=== PATIENT | male | born 1960 | race Caucasian/White ===

== ENCOUNTER 2019-12-01 01:16 | Inpatient (IN) | payer BC, OTHER ==
[2019-12-01] MEDS ORDERED: Succinylcholine Chloride 20 MG/ML 10 ml SYRINGE FS ONE (01:22)
[2019-12-01] MEDS ORDERED: diphenhydrAMINE 50 MG/ML VIAL ONE (01:30)
[2019-12-01] MEDS ORDERED: methylPREDNISolone Sod Succ/PF 125 MG/2 ML VIAL ONE (01:30)
[2019-12-01] MEDS ORDERED: Famotidine/PF 20 mg/2ml Vial ONE ×2 (01:30→01:35)
[2019-12-01 01:40] LABS: #Basophils 0.1 thou/uL (0.0-0.2); #Eosinphils 0.3 thou/uL (0.0-0.7); #Lymphocytes 2.3 thou/uL (1.20-3.40); #Monocytes 0.9 thou/uL (0.11-0.59); #Neutrophils 3.7 thou/uL (1.40-6.50); %Basophils 1.3 % (0.0-1.0); %Eosinophils 4.4 % (0.0-10.0); %Lymphocytes 31.8 % (21.0-51.0); %Monocytes 12.1 % (0.0-10.0); %Neutrophils 50.5 % (42.0-75.0); Mean Corpuscular HGB CONC 33.7 g/dL (32.0-36.0); Mean Corpuscular Hemoglobin 34.1 pg (27.0-31.0); Platelet Count 209 thou/uL (130-400); RBC Distribution Width 11.8 % (11.5-14.5); Red Blood Cell (RBC) Count 4.99 mill/uL (4.70-6.10); White Blood Cell (WBC) Count 7.3 thou/uL (4.8-10.8)
[2019-12-01] MEDS ORDERED: Fentanyl 100 MCG/2 ML VIAL ONE (01:52)
[2019-12-01] MEDS ORDERED: Midazolam HCl 2 mg/2 ml Vial ONE ×2 (01:52)
[2019-12-01] MEDS ORDERED: Lidocaine 1% w/Epinephrine 1:100K 20 ML VIAL ONE (01:55)
[2019-12-01 01:58] LABS: ALT (SGPT) 173 U/L (8-55); AST (SGOT) 181 U/L (5-34); Albumin 4.8 g/dL (3.5-5.0); Alkaline Phosphatase 78 U/L (40-110); Anion Gap 18 mmol/L (10-20); BUN (Urea Nitrogen) 11 mg/dL (8.4-25.7); Bilirubin, Total 0.6 mg/dL (0.2-1.2); Calc. Creatinine Clearance 0 mL/min (70-130); Calcium 9.8 mg/dL (7.8-10.44); Carbon Dioxide 23 mmol/L (22-29); Chloride 99 mmol/L (98-107); Estimated GFR-MDRD 78; Globulin 3.7 g/dL (2.4-3.5); Glucose 97 mg/dL (70-105); Potassium 3.8 mmol/L (3.5-5.1); Protein, Total 8.5 g/dL (6.0-8.3); Sodium 136 mmol/L (136-145)
[2019-12-01] MEDS: Propofol 1,000 MG/100 ML VIAL IV PRN ×3 (03:00→18:12)
[2019-12-01] MEDS ORDERED: Morphine 2 MG/ML VIAL SLOW IVP PRN (03:03)
[2019-12-01] MEDS ORDERED: Fentanyl BOLUS 250 ML IVPB PRN (03:03)
[2019-12-01] MEDS ORDERED: Propofol BOLUS 1,000 MG/100 ML VIAL IV PRN (03:03)
[2019-12-01] MEDS ORDERED: DISCONTINUE PREVIOUS NARCOTIC PAIN MEDICATIONS AND BENZODIAZEPINES FS SCH (03:03)
[2019-12-01 03:24] LABS: Actual Bicarbonate (HCO3a) 17.1 mEq/L (22-28); Base Excess (BEa) -8.9 mEq/L (-2.0 to +3.0); CO2 Tension 37.5 mmHg (35.0-45.0); Calcium, Ionized (arterial) 1.08 mmol/L (1.12-1.30); Carboxyhemoglobin (COHb) 2.9 gm% (0.0-3.0); Hemoglobin (Hb) 15.2 g/dL (14.0-18.0); O2 Tension (PaO2), arterial 156.1 mmHg (80.0-100.0); Potassium - ABG Lab 3.36 mmol/L (3.70-5.30); pH, Arterial 7.28 (7.35-7.45)
[2019-12-01 03:25] LABS: ALV-art Gradient 153.525 (0-20); Puncture Site LRA
[2019-12-01] MEDS: fentaNYL Citrate/PF 2,000 MCG in Sodium Chloride 0.9% 60 ML IV SCH (03:33)
[2019-12-01] MEDS ORDERED: diphenhydrAMINE 50 MG/ML VIAL IVP PRN (03:39)
--- NOTE | 2019-12-01 03:42 | PDOC.HHP ---
Hospitalist HPI - History of Present Illness angioedema History of Present Illness: This is a 59 year old male with past medical history of hypertension who presented with tongue swelling. THe patient was started on lisinopril-HCTZ three days ago per chart review. Per ER doctor, the patient's tongue had started swelling around 10:00 pm and the patient came to the ER for further evaluation. He did not have swelling of his lips, tingling, rashes, itching, fevers or chills. The patient reportedly had complained of odynophagia and dysphagia as well. Per ED attending, the patient was very difficult to understand and anasthesia was called for intubation. The patient's airway was reportedly very edematous and he required nasal intubation ED Course: The patient presented to the ER and was noted to be mildly tachycardic to 107, afebrile with oxygen saturation 97% on room air. Chest Xray was unremarkable. The patient was taken to the OR emergently for intubation. He was given benadryl , decadron, 1L normal saline, and pepcid. Hospitalist ROS - Review of Systems ROS unobtainable: due to mental status - Medication Medications: Active Medications Generic Name Dose Route Start Last Admin Trade Name Freq PRN Reason Stop Dose Admin Fentanyl Citrate 2,000 mcg/ 100 mls @ 0 mls/hr 12/01/19 03:03 12/01/19 03:33 Sodium Chloride IV 12/31/19 03:03 100 mls INF SHAYY Administration Protocol Per Protocol Hospitalist History - Past Medical History Source: patient Other Medical History: Hypertension - Past Surgical History Other Surgical History: None - Family History Other Family History: Unable to obtain - Social History Smoking Status: Unknown if ever smoked Alcohol: reports: None - Exam General Appearance: NAD, awake alert General - other findings: intubated, sedated, not following commands Eye: PERRL, anicteric sclera ENT: normocephalic atraumatic, no oropharyngeal lesions ENT - other findings: very swollen tongue, not erythematous Neck: supple, symmetric, no JVD, no thyromegaly Heart: RRR, no murmur, no gallops, no rubs Respiratory: CTAB, no wheezes, no rales, no ronchi Gastrointestinal: soft, non-tender, non-distended, normal bowel sounds Extremities: no cyanosis, no clubbing, no edema Skin: normal turgor, no lesions, no rashes Neurological: cranial nerve grossly intact, normal sensation to touch, no focal deficits, no new deficit Musculoskeletal: normal tone, normal strength, no muscle wasting Psychiatric: normal affect, normal behavior, A&O x 3, oriented to person Hospitalist Results - Labs Result Diagrams: 12/01/19 01:28 12/01/19 01:28 Lab results: WBC 7.3 thou/uL (4.8-10.8) 12/01/19 01:28 Hgb 17.0 g/dL (14.0-18.0) 12/01/19 01:28 Hct 50.5 % (42.0-52.0) 12/01/19 01: MCV 101.0 fL (78.0-98.0) H 12/01/19 01:28 Plt Count 209 thou/uL (130-400) 12/01/19 01: Neutrophils % 50.5 % (42.0-75.0) 12/01/19 01:28 ABG pH 7.28 (7.35-7.45) L 12/01/19 03:15 ABG pCO2 37.5 mmHg (35.0-45.0) 12/01/19 03:15 ABG pO2 156.1 mmHg (80.0-100.0) H 12/01/19 03:15 Sodium 136 mmol/L (136-145) 12/01/19 01:28 Potassium 3.8 mmol/L (3.5-5.1) 12/01/19 01: Chloride 99 mmol/L (98-107) 12/01/19 01:28 Carbon Dioxide 23 mmol/L (22-29) 12/01/19 01:28 BUN 11 mg/dL (8.4-25.7) 12/01/19 01:28 Creatinine 0.99 mg/dL (0.7-1.3) 12/01/19 01:28 Glucose 97 mg/dL (70-105) 12/01/19 01:28 Calcium 9.8 mg/dL (7.8-10.44) 12/01/19 01:28 Total Bilirubin 0.6 mg/dL (0.2-1.2) 12/01/19 01:28 AST 181 U/L (5-34) H 12/01/19 01:28 ALT 173 U/L (8-55) H 12/01/19 01:28 Alkaline Phosphatase 78 U/L (40-110) 12/01/19 01:28 Serum Total Protein 8.5 g/dL (6.0-8.3) H 12/01/19 01:28 Albumin 4.8 g/dL (3.5-5.0) 12/01/19 01:28 Hospitalist H&P A/P - Plan Plan: This is a 59 year old male with past medical history of hypertension who presented with angioedema after recently starting lisinopril/HCTZ Acute hypoxic respiratory failure secondary to angioedema likely from SUJEY inhibitor use - currently intubated for airway protection (nasally) - will continue IV steroids, IV pepcid - will also place on IV zosyn empirically - check C4 levels, ESR, CRP Acute metabolic acidosis - pH 7.27, bicarb low - will start normal saline Transaminitis - AST 181, ALT 173 - possibly dehydration related - will check abdominal ultrasound - administer IV fluids Diet: NPO DVT prophylaxis: lovenox Code status: full code
[2019-12-01] MEDS: Sodium Chloride 0.9% 1,000 ML IV SCH ×2 (03:46→13:12)
[2019-12-01] MEDS: Piperacillin/Tazobactam 3.375 GM in Sodium Chloride 0.9% 100 ML IVPB SCH ×4 (04:42→21:46)
[2019-12-01] MEDS ORDERED: methylPREDNISolone Sod Succ 40 MG VIAL IVP SCH (06:00)
--- NOTE | 2019-12-01 07:34 | RAD ---
SINGLE VIEW CHEST: Date: 12/01/2019 COMPARISON: 02/20/2008. HISTORY: Intubation with respiratory distress. FINDINGS: Single view of the chest shows a normal sized cardiomediastinal silhouette. There is an endotracheal tube with its tip between the clavicles. There is no evidence of consolidation or mass. There may be a small right pleural effusion with adjacent atelectasis. IMPRESSION: 1. Possible small right pleural effusion with adjacent atelectasis. 2. Appropriate position of endotracheal tube. POS: EAA
--- NOTE | 2019-12-01 08:54 | ULT ---
RIGHT UPPER QUADRANT ABDOMINAL ULTRASOUND: Date: 12/01/2019 HISTORY: Transaminitis. TECHNIQUE: Multiplanar Robles scale and color Doppler images were obtained in a right upper quadrant abdominal ult rasound. FINDINGS: The liver is increased in echogenicity without focal lesions or intrahepatic ductal dilatation. The l eft lobe is not well visualized. The gallbladder is normal without stones, sludge, gallbladder wall t hickening, or pericholecystic fluid. The common bile duct is normal measuring 4.0 mm. The pancreas cannot be visualized. The right kidney is normal in echogenicity without hydronephrosis or calculus and measured 11.2 cm in length. IMPRESSION: Fatty liver. POS: EAA
[2019-12-01] MEDS: Enoxaparin Sodium 40 MG/0.4 ML SYRINGE SC SCH (09:20)
[2019-12-01] MEDS: Famotidine/PF 20 mg/2ml Vial SLOW IVP SCH (09:20)
[2019-12-01] MEDS ORDERED: PROPOFOL 200 MG/20 ML VIAL ONE (09:36)
[2019-12-01] MEDS: Loratadine 10 MG TAB PO SCH ×2 (09:51→20:39)
--- NOTE | 2019-12-01 11:41 | CON ---
DATE OF CONSULTATION: 12/01/2019 HISTORY OF PRESENT ILLNESS: Frederic Trinh is a 59-year-old gentleman from [place], [place], who was seeing Dr. Tc Mccord, who is no longer working there. Two days ago, his blood pressure medicine was changed. He then started developing swelling and facial edema. He was taken to the hospital with marked angioedema. There was concern he may need an emergency trach. His tongue was swollen, having difficulty swallowing and breathing. He was taken to the operating room. He has a nasal tube intubation. This morning, he is awake, responsive. His tongue is still swollen. Lips are still swollen, but is appropriate. Got additional information from his brother, who states that the patient smokes two packs a day. No prior history of TB, pneumonia, or bronchial asthma. PAST MEDICAL HISTORY: Pertinent only for hypertension. MEDICATIONS: New medicine, lisinopril/hydrochlorothiazide 02/24.5. PREVIOUS SURGERIES: None. 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 Minimal alcohol abuse. ALLERGIES: NO PRIOR HISTORY OF ALLERGIES. PAST SURGICAL HISTORY: No prior surgery. REVIEW OF SYSTEMS: Ten point negative. PHYSICAL EXAMINATION: VITAL SIGNS: Pulse 72, blood pressure 138/40, sats 100%, respiratory rate 16. GENERAL: He is awake, responsive. CHEST: No wheezing or crackles. CARDIAC: Normal S1, S2. No gallops. ABDOMEN: No masses. LABORATORY DATA: White count 10,000, H and H 17 and 50. His pO2 is 156, pCO2 is 37%, pH 7.28. His chemistry profile is normal. His liver functions slightly elevated; 181, 173. ASSESSMENT: 1. Angioedema secondary to SUJEY. 2. Hypertension. 3. Tobacco abuse. 4. . 5. Elevated transaminase. PLAN: He is started on Zosyn. I will continue to switch him over to Decadron. Once the swelling has decreased we will hopefully try and extubate. May consider giving him a unit of fresh frozen plasma. CRITICAL CARE TIME: 45-minute critical time. Job ID: [id number]
[2019-12-01] MEDS: Dexamethasone 4 MG in Sodium Chloride 0.9% 50 ML IVPB SCH ×2 (12:24→18:12)
[2019-12-01] MEDS: Lorazepam 2 MG/ML VIAL SLOW IVP PRN ×3 (12:36→20:16)
[2019-12-02] MEDS: Dexamethasone 4 MG in Sodium Chloride 0.9% 50 ML IVPB SCH ×4 (00:37→17:52)
[2019-12-02] MEDS: Lorazepam 2 MG/ML VIAL SLOW IVP PRN ×2 (00:38→03:35)
[2019-12-02] MEDS: fentaNYL Citrate/PF 2,000 MCG in Sodium Chloride 0.9% 60 ML IV SCH (01:02)
[2019-12-02] MEDS: Propofol 1,000 MG/100 ML VIAL IV PRN ×2 (01:16→08:02)
[2019-12-02] MEDS: Sodium Chloride 0.9% 1,000 ML IV SCH ×3 (03:35→10:55)
[2019-12-02] MEDS: Piperacillin/Tazobactam 3.375 GM in Sodium Chloride 0.9% 100 ML IVPB SCH ×3 (03:35→16:34)
[2019-12-02 05:43] LABS: #Basophils 0.1 thou/uL (0.0-0.2); #Lymphocytes 0.2 thou/uL (1.20-3.40); #Monocytes 0.5 thou/uL (0.11-0.59); #Neutrophils 7.1 thou/uL (1.40-6.50); %Basophils 1.8 % (0.0-1.0); %Eosinophils 0.1 % (0.0-10.0); %Lymphocytes 2.9 % (21.0-51.0); %Monocytes 5.7 % (0.0-10.0); %Neutrophils 89.4 % (42.0-75.0); Hemoglobin 13.8 g/dL (14.0-18.0); Mean Corpuscular HGB CONC 33.5 g/dL (32.0-36.0); Mean Corpuscular Hemoglobin 34.9 pg (27.0-31.0); Mean Platelet Volume 8.1 fL (7.4-10.4); Platelet Count 165 thou/uL (130-400); RBC Distribution Width 11.7 % (11.5-14.5); Red Blood Cell (RBC) Count 3.94 mill/uL (4.70-6.10)
[2019-12-02 05:59] LABS: Anion Gap 16 mmol/L (10-20); BUN (Urea Nitrogen) 16 mg/dL (8.4-25.7); Calc. Creatinine Clearance 207 mL/min (70-130); Calcium 8.1 mg/dL (7.8-10.44); Carbon Dioxide 21 mmol/L (22-29); Chloride 105 mmol/L (98-107); Estimated GFR-MDRD 82; Glucose 150 mg/dL (70-105); Potassium 4.6 mmol/L (3.5-5.1); Sodium 137 mmol/L (136-145)
[2019-12-02] MEDS: Famotidine/PF 20 mg/2ml Vial SLOW IVP SCH ×3 (07:13→21:04)
[2019-12-02] MEDS ORDERED: DC Sedation Protocol FS ONE (08:39)
--- NOTE | 2019-12-02 08:51 | RAD ---
SINGLE VIEW CHEST: HISTORY: Ventilated patient with respiratory failure. COMPARISON: 12/01/19 FINDINGS: A single view of the chest shows a normal sized cardiomediastinal silhouette. The endotracheal tube i s unchanged in position. There is no evidence of consolidation or mass. There may be a small right pl eural effusion. IMPRESSION: Possible small right pleural effusion. POS: EAA
[2019-12-02] MEDS: Loratadine 10 MG TAB PO SCH ×2 (09:22→21:03)
[2019-12-02] MEDS: Enoxaparin Sodium 40 MG/0.4 ML SYRINGE SC SCH (09:23)
--- NOTE | 2019-12-02 09:25 | PRG ---
DATE OF SERVICE: 12/02/2019 SUBJECTIVE: A 59-year-old gentleman, who developed severe angioedema from an SUJEY inhibitor. This morning, he is awake, alert, and responsive. His leak test is positive. His tongue is still swollen, but less so. He has nasal tube. OBJECTIVE: VITAL SIGNS: Pulse 97, sats 99%, blood pressure 119/60, and respiratory rate 15. CHEST: Decreased breath sounds. No wheezing. CARDIAC: Normal S1 and S2. No gallops. ABDOMEN: No masses. LABORATORY DATA: Lytes normal. X-rays otherwise normal. ASSESSMENT: Face edema, respiratory failure, hypertension. He will be extubated today. We will continue steroids for the next 24 hours. Additionally, he is on Pepcid, neb treatments, loratadine. One-half hour of critical time. Job ID: [id number]
[2019-12-02] MEDS ORDERED: Benzonatate 100 MG CAP PO PRN (10:54)
[2019-12-02] MEDS ORDERED: hydrALAZINE 20 MG/ML VIAL SLOW IVP PRN (10:54)
[2019-12-02] MEDS ORDERED: Melatonin 3 MG TAB PO PRN (10:54)
[2019-12-02] MEDS: Labetalol HCl 100 MG/20 ML VIAL SLOW IVP PRN ×2 (14:11→21:51)
--- NOTE | 2019-12-02 15:09 | PDOC.HOSPP ---
- Subjective Subjective: Seen and examined. Patient has been successfully extubated. He is alert and oriented times three and is slowly understanding what caused him to be in the hospital. He is working with his swallow evaluation and did well with speech therapy. Will advances diet and get oral blood pressure medications on board. Patient doing well and will look to downgrade this afternoon. - Objective Vital Signs & Weight: Vital Signs (12 hours) Temp Pulse Resp BP Pulse Ox 12/02/19 14:11 117 H 184/118 H 12/02/19 12:00 98.1 F 96 12/02/19 08:00 98.2 F 17 96 12/02/19 07:08 65 120/81 97 12/02/19 07:07 65 13 97 12/02/19 06:00 14 12/02/19 04:00 97.2 F L 14 Weight Admit Weight 235 lb 14.304 oz Weight 244 lb 11.41 oz Most Recent Monitor Data Heart Rate from ECG 93 NIBP 156/100 NIBP BP-Mean 118 Respiration from ECG 15 SpO2 95 I&O: 12/01/19 12/02/19 12/03/19 06:59 06:59 06:59 Intake Total 344.8 3218.6 Output Total 1425 1770 750 Balance -1080.2 1448.6 -750 Result Diagrams: 12/02/19 05:26 12/02/19 05:26 Radiology Reviewed by me: Yes Hospitalist ROS - Review of Systems All other systems reviewed; all pertinent +/- noted in HPI/Subj - Medication Medications: Active Medications Generic Name Dose Route Start Last Admin Trade Name Freq PRN Reason Stop Dose Admin Albuterol/Ipratropium 3 ml 12/01/19 13:00 12/02/19 14:11 Duoneb NEB Not Given [id number] SHAYY Enoxaparin Sodium 40 mg 12/01/19 09:00 12/02/19 09:23 Lovenox SC 40 mg 0900 SHAYY Administration Famotidine 20 mg 12/01/19 09:00 12/02/19 09:22 Pepcid SLOW IVP 20 mg BID SHAYY Administration Piperacillin Sod/Tazobactam 100 mls @ 200 mls/hr 12/01/19 04:00 12/02/19 09: 22 Sod 3.375 gm/ Sodium Chloride IVPB 100 mls Q6H SHAYY Administration Dexamethasone 4 mg/ Sodium 50.4 mls @ 100 mls/hr 12/01/19 12:00 12/02/19 12: 08 Chloride IVPB 50.4 mls Q6HR SHAYY Administration Sodium Chloride 1,000 mls @ 75 mls/hr 12/02/19 10:55 12/02/19 10:55 Normal Saline 0.9% IV 1,000 mls .[id number] SHAYY Administration Labetalol HCl 10 mg 12/02/19 10:54 12/02/19 14:11 Normodyne SLOW IVP 10 mg Q4H PRN Administration SBP Greater Than 180 Loratadine 10 mg 12/01/19 09:00 12/02/19 09:22 Claritin PO 12/03/19 09:01 10 mg BID SHAYY Administration - Exam General Appearance: NAD, awake alert Eye: PERRL ENT: normocephalic atraumatic, moist mucosa Neck: supple, symmetric, no lymphadenopathy Heart: no murmur, no gallops, no rubs Respiratory: CTAB, no wheezes, no rales, no ronchi Respiratory - other findings: mild upper airway wheezing Gastrointestinal: soft, non-tender, no guarding, no rigidity Extremities: no edema Skin: no lesions, no rashes Neurological: cranial nerve grossly intact, no focal deficits Musculoskeletal: normal strength Psychiatric: normal affect, normal behavior, A&O x 3 Hosp A/P (1) Acute respiratory failure Code(s): J96.00 - ACUTE RESPIRATORY FAILURE, UNSP W HYPOXIA OR HYPERCAPNIA Status: Acute (2) Angioedema Code(s): T78.3XXA - ANGIONEUROTIC EDEMA, INITIAL ENCOUNTER Status: Acute (3) Allergy to lisinopril Code(s): Z88.8 - ALLERGY STATUS TO OTH DRUG/MEDS/BIOL SUBST STATUS Status: Acute (4) Shortness of breath Code(s): R06.02 - SHORTNESS OF BREATH Status: Acute (5) Hypoxia Code(s): R09.02 - HYPOXEMIA Status: Acute (6) HTN (hypertension) Code(s): I10 - ESSENTIAL (PRIMARY) HYPERTENSION Status: Acute (7) Obesity (BMI 30.0-34.9) Code(s): E66.9 - OBESITY, UNSPECIFIED Status: Acute - Plan Plan: intensive care unit, stable for downgrade to the medical unit with telemetry critical-care consultation, recommendations appreciated lisinopril induced angioedema resulting in acute respiratory failure and mechanical ventilation, on appropriate medications extubated 12/02/2019 has worked with speech therapy and past swallow evaluation advanced diet restarting oral medications for blood pressure control PT and OT evaluation and treatment will need to mobilize the patient continue other home medications is able blood pressure control blood sure control G.I. prophylaxis DVT prophylaxis
[2019-12-02] MEDS: Carvedilol 6.25 MG TAB PO SCH (16:35)
[2019-12-03] MEDS: Sodium Chloride 0.9% 1,000 ML IV SCH (00:31)
[2019-12-03] MEDS: Dexamethasone 4 MG in Sodium Chloride 0.9% 50 ML IVPB SCH ×2 (00:31→05:39)
[2019-12-03] MEDS: Piperacillin/Tazobactam 3.375 GM in Sodium Chloride 0.9% 100 ML IVPB SCH ×3 (00:31→10:33)
[2019-12-03] MEDS: Carvedilol 6.25 MG TAB PO SCH ×2 (09:26→17:48)
[2019-12-03] MEDS: Famotidine/PF 20 mg/2ml Vial SLOW IVP SCH ×2 (09:26→20:57)
[2019-12-03] MEDS: Enoxaparin Sodium 40 MG/0.4 ML SYRINGE SC SCH (09:26)
[2019-12-03] MEDS: Loratadine 10 MG TAB PO SCH (09:27)
[2019-12-03] MEDS ORDERED: Carvedilol 6.25 MG TAB PO SCH ×3 (09:46→12:00)
--- NOTE | 2019-12-03 10:53 | PRG ---
DATE OF SERVICE: 12/03/2019 SUBJECTIVE: Frederic Trinh this morning is awake, alert, and responsive. No further swelling of his tongue. OBJECTIVE: VITAL SIGNS: Temperature 98, pulse 96, blood pressure is slightly elevated 186/118, and saturation on room air. CHEST: No wheezing, no crackles. CARDIAC: Normal S1, S2. No gallops. ABDOMEN: No masses. ASSESSMENT: Angioedema secondary to SUJEY, hypertension. PLAN: Pulmonary isaac, to be discharged home. Very important to note that he should not be placed on any SUJEY at any time. Discontinue antibiotics, discontinue steroids. Job ID: [id number]
--- NOTE | 2019-12-03 14:33 | PDOC.HOSPP ---
- Subjective Subjective: Seen and examined. This AM BP 186/118, I have adjusted medications again. He has not worked with PT/OT yet secondary to BP being to high. Hopefully if BP better in the afternoon they can work with him. He is dissatisfied with food and requesting outside food which is OK if he is willing to stay. Tongue not swollen and breathing comfortably on room air. Likely home tomorrow if does well with PT/ OT and we can control his BP. - Objective Vital Signs & Weight: Vital Signs (12 hours) Temp Pulse Pulse Pulse Resp BP BP 12/03/19 12:24 97 14 155/98 H 12/03/19 10:38 173/108 H 12/03/19 10:16 94 91 177/117 H 12/03/19 09:27 12/03/19 09:26 186/118 H 12/03/19 09:16 106 H 112 H 178/115 H 12/03/19 07:43 98 F 96 16 12/03/19 06:47 91 18 BP BP Pulse Ox 12/03/19 12:24 94 L 12/03/19 10:38 12/03/19 10:16 173/108 H 12/03/19 09:27 96 12/03/19 09:26 12/03/19 09:16 186/118 H 12/03/19 07:43 143/85 H 96 12/03/19 06:47 97 Weight Admit Weight 235 lb 14.304 oz Weight 238 lb Most Recent Monitor Data Heart Rate from ECG 83 NIBP 197/131 NIBP BP-Mean 153 Respiration from ECG 18 SpO2 98 I&O: 12/02/19 12/03/19 12/04/19 06:59 06:59 06:59 Intake Total 3218.6 1299 800 Output Total 1770 1350 650 Balance 1448.6 -51 150 Result Diagrams: 12/02/19 05:26 12/02/19 05:26 Radiology Reviewed by me: Yes Hospitalist ROS - Review of Systems All other systems reviewed; all pertinent +/- noted in HPI/Subj - Medication Medications: Active Medications Generic Name Dose Route Start Last Admin Trade Name Freq PRN Reason Stop Dose Admin Albuterol/Ipratropium 3 ml 12/01/19 13:00 12/03/19 12:24 Duoneb NEB 3 ml [id number] SHAYY Administration Carvedilol 6.25 mg 12/03/19 12:00 12/03/19 12:24 Coreg PO 12/03/19 15:00 6.25 mg NOW SHAYY Administration Enoxaparin Sodium 40 mg 12/01/19 09:00 12/03/19 09:26 Lovenox SC 40 mg 0900 SHAYY Administration Famotidine 20 mg 12/01/19 09:00 12/03/19 09:26 Pepcid SLOW IVP 20 mg BID SHAYY Administration Labetalol HCl 10 mg 12/02/19 10:54 12/02/19 21:51 Normodyne SLOW IVP 10 mg Q4H PRN Administration SBP Greater Than 180 - Exam General Appearance: NAD, awake alert Eye: PERRL ENT: normocephalic atraumatic, moist mucosa Neck: supple Heart: RRR, no murmur, no gallops, no rubs Heart - other findings: Rapid regular Respiratory: CTAB, no wheezes, no rales, no ronchi Gastrointestinal: soft, non-tender, no guarding, no rigidity Extremities: no edema Skin: no lesions, no rashes Neurological: cranial nerve grossly intact, no focal deficits Musculoskeletal: generalized weakness Psychiatric: normal affect, normal behavior, A&O x 3 Hosp A/P (1) Acute respiratory failure Code(s): J96.00 - ACUTE RESPIRATORY FAILURE, UNSP W HYPOXIA OR HYPERCAPNIA Status: Acute (2) Angioedema Code(s): T78.3XXA - ANGIONEUROTIC EDEMA, INITIAL ENCOUNTER Status: Acute (3) Allergy to lisinopril Code(s): Z88.8 - ALLERGY STATUS TO OTH DRUG/MEDS/BIOL SUBST STATUS Status: Acute (4) Shortness of breath Code(s): R06.02 - SHORTNESS OF BREATH Status: Acute (5) Hypoxia Code(s): R09.02 - HYPOXEMIA Status: Acute (6) HTN (hypertension) Code(s): I10 - ESSENTIAL (PRIMARY) HYPERTENSION Status: Acute (7) Obesity (BMI 30.0-34.9) Code(s): E66.9 - OBESITY, UNSPECIFIED Status: Acute - Plan Plan: medical unit with telemetry critical-care consultation, recommendations appreciated lisinopril induced angioedema resulting in acute respiratory failure and mechanical ventilation, on appropriate medications extubated 12/02/2019 has worked with speech therapy and past swallow evaluation advanced diet Increasing carvedilol for blood pressure control PT and OT evaluation and treatment will need to mobilize the patient continue other home medications is able blood pressure control blood sure control G.I. prophylaxis DVT prophylaxis Disposition: Likely home tomorrow AM if BP controlled and does well with PT/OT.
[2019-12-03 15:21] LABS: SARS-CoV-2 MS2 Positive; SARS-CoV-2 N Gene Negative; SARS-CoV-2 S Gene Negative; SARS-CoV-2 orf1ab Negative
--- NOTE | 2019-12-03 15:30 | OP ---
DATE OF PROCEDURE: 12/01/2019 PREOPERATIVE DIAGNOSIS: Acute respiratory failure due to angioedema. POSTOPERATIVE DIAGNOSIS: Acute respiratory failure due to angioedema. PROCEDURE PERFORMED: Standby while anesthesia performed a nasotracheal intubation. DESCRIPTION OF PROCEDURE: The patient was brought to the operating room acutely from the emergency department because of respiratory failure. The patient was placed on the operating table and Dr. Walker of Anesthesia was able to nasotracheally intubate the patient endoscopically. I then sutured a Prolene in his nasal septum to keep the nasotracheal tube in place to avoid extubation. At this point, the patient was turned back over to anesthesia for transport into the intensive care unit for observation and treatment. Job ID: [id number]
[2019-12-04 07:52] VITALS: BP 151/103; TEMP 98.1
[2019-12-04] MEDS: Famotidine/PF 20 mg/2ml Vial SLOW IVP SCH (10:20)
[2019-12-04] MEDS: Enoxaparin Sodium 40 MG/0.4 ML SYRINGE SC SCH (10:20)
[2019-12-04] MEDS: Carvedilol 6.25 MG TAB PO SCH (10:20)
[2019-12-04 11:03] VITALS: BMI 30.7
--- NOTE | 2019-12-04 12:17 | PRG ---
DATE OF SERVICE: 12/04/2019 SUBJECTIVE: A 59-year-old gentleman, is going home today. OBJECTIVE: VITAL SIGNS: Temperature 98, pulse 100, respirations 20, saturations 90% on room air, blood pressure 150/100. CHEST: No wheezing, no crackles. CARDIAC: Normal S1, S2. No gallops. ABDOMEN: Soft. HEENT: Mouth, tongue not swollen anymore. ASSESSMENT AND PLAN: SUJEY severe angioedema, hypertension. Patient was once again told to inform all his doctors not to prescribe SUEJY. He can be seen in the office as needed. Job ID: [id number] MTDD
--- NOTE | 2019-12-05 06:17 | DIS ---
DATE OF ADMISSION: 12/01/2019 DATE OF DISCHARGE: 12/04/2019 REASON FOR HOSPITALIZATION: Anaphylactic response to lisinopril, resulting in angioedema and acute respiratory failure, requiring mechanical ventilation. PROCEDURES PERFORMED AND TREATMENTS RENDERED: The patient presenting to [facility] on 12/01/2019, with shortness of breath. The patient was reportedly two days ago started on a new antihypertensive medication, lisinopril, when he started developing swelling of the tongue and facial edema. He was taken to the hospital with marked angioedema and he required nasal tube intubation, please see full operative reports and notes from Emergency Department physician for full details. The patient was transferred to the intensive care unit under the management of Pulmonary/Critical Care. Nasotracheal intubation was successful, and the patient was weaned appropriately by Pulmonology/Critical Care physician. The patient was successfully extubated on 12/02/2019. The patient's blood pressure was difficult to control and it required adjustment of blood pressure medications. The patient having all appropriate maximum medical therapy for angioedema, please see full medication history for details, though a combination of steroids, Pepcid, and antihistamines were used with good success. With the patient's significant edema, a formal speech therapy swallow evaluation was performed and he passed this without difficulty. The patient's diet was advanced to regular-type foods and he tolerated this without problems. The patient was worked with by Physical Therapy and Occupational Therapy, who reported he was stable physically for discharge with close followup in the outpatient setting. The patient medically safe for discharge with close followup in the outpatient setting. The patient recommended to list SUJEY inhibitors as severe medical allergy to all of his doctors and these medications can never be initiated again. CONDITION ON DISCHARGE: Stable. SPECIFIC INSTRUCTIONS FOR THE PATIENT/FAMILY: 1. The patient recommended to take blood pressure medications as directed. 2. The patient recommended to keep a blood pressure log with two readings per day and take this blood pressure log to his primary care physician at his upcoming appointment. 3. The patient recommended to follow up with primary care physician in the next 1 to 2 weeks. 4. The patient recommended to list lisinopril as an allergy, and he will never be able to take any SUJEY inhibitor medications again. 5. The patient recommended to return to acute care hospital immediately if signs or symptoms return, worsen, or any other new symptoms occur. DISCHARGE MEDICATIONS: 1. Carvedilol 12.5 mg one tablet p.o. b.i.d. 2. Albuterol nebulizer solution, inhale one vial p.o. q.4 hours p.r.n. shortness of breath or wheezing. 3. All other home medications continued without changes. TIME SPENT: Greater than 39 minutes spent coordinating care and discharge process for this patient. Job ID: [id number]
== END 2019-12-04 11:48 | disposition home or self-care (01) | DRG 208 ==
LOC: ERS 01:16 → 2SE 01:52 → SDC/OP 01:54 → CCU 03:06 → 2SE 12-02 21:24
PROVIDERS: ADMIT Internal Medicine; ATTEND Internal Medicine
PROC: 5A1945Z Respiratory Ventilation, 24-96 Consecutive Hours (ICD-10-PCS; principal; 2019-12-01)
PROC: 0BH18EZ Insertion of Endotracheal Airway into Trachea, Via Natural or Artificial Opening Endoscopic (ICD-10-PCS; 2019-12-01)
DX: J96.01 Acute respiratory failure with hypoxia (principal); E87.2 Acidosis; T78.3XXA Angioneurotic edema, initial encounter; Z20.828 Contact with and (suspected) exposure to other viral communicable diseases; I10 Essential (primary) hypertension; F17.210 Nicotine dependence, cigarettes, uncomplicated; R74.0 Nonspecific elevation of levels of transaminase and lactic acid dehydrogenase [LDH]; T46.4X5A Adverse effect of angiotensin-converting-enzyme inhibitors, initial encounter; E66.9 Obesity, unspecified; Z68.30 Body mass index [BMI] 30.0-30.9, adult; Z79.899 Other long term (current) drug therapy; Z28.21 Immunization not carried out because of patient refusal
CPT/HCPCS: 36415; 71045; 76705; 80048; 80053; 82805; 85025; 85652; 86140; 86160; 87635; 94002; 94003; 94640; 96374; 96375; J1100; J1200; J1650; J2060; J2250; J2543; J2704; J2920; J2930; J3010; J3490; J7620; S0028; U0003

== ENCOUNTER 2020-06-17 09:09 | Outpatient (CLI) | payer BC ==
--- NOTE | 2020-06-17 09:44 | ULT ---
Ultrasound of [facility] upper quadrant: 06/17/2020 COMPARISON:12/01/2019 HISTORY:Abnormal liver function tests TECHNIQUE: Multiplanar grayscale sonographic imaging of [facility] upper quadrant provided FINDINGS:The pancreas is not well seen secondary to body habitus and bowel gas. The hepatic parenchyma is heterogeneous and echogenic suggesting hepatic steatosis. No gallbladder wa ll thickening or pericholecystic fluid. No gallstones are noted. The right kidney measures 10.8 cm in craniocaudal dimension and demonstrates no evidence for stone, h ydronephrosis, or mass. Common bile duct is difficult to discretely visualized secondary to body habitus, bowel gas, and the echogenic nature of the hepatic parenchyma. The common bile duct is estimated at approximately 6 mm in transverse dimension, within normal limits. IMPRESSION:No evidence for cholelithiasis or cholecystitis.
== END 2020-06-17 09:10 | disposition home or self-care (01) ==
LOC: BICULT 09:09
PROVIDERS: ATTEND Registered Nurse
DX: R94.5 Abnormal results of liver function studies (principal)
CPT/HCPCS: 76705